=== PATIENT | male | born 1960 | race African-American/Black ===

== ENCOUNTER 2017-04-20 00:32 | Emergency (ER) | payer MEDICAID ==
[~2017-04-20] VITALS: Ht 177.8 cm; Wt 81.6 kg
[2017-04-20 00:32] VITALS: BP_SYST 211
--- NOTE | 2017-04-20 00:32 | NUR ---
Patient to ER bed 6 to gown for evaluation. Side rails up. Report given to KARMA MEZA.
--- NOTE | 2017-04-20 00:40 | NUR ---
Patient brought in BLS complaining of dark red blood in stool for 3 days and generalized weakness x 1 week. Denies any Nausea/vomiting or diarrhea. Pain of 9/10 to lower back and generalized abdominal pain. No other complaints/injuries per patient or as noted. Will continue to monitor.
--- NOTE | 2017-04-20 00:45 | NUR ---
ER at bedside examining patient.
--- NOTE | 2017-04-20 00:55 | NUR ---
urine collected and sent to lab.
--- NOTE | 2017-04-20 00:58 | NUR ---
Rectal exam performed by Dr. Garcia with KARMA Bhakta at bedside during procedure. Patient tolerated well.
[2017-04-20 01:05] LABS: BILIRUBIN,URINE NEGATIVE (NEGATIVE); CLARITY/URINE CLEAR (CLEAR); COLOR,URINE YELLOW (YELLOW); GLUCOSE,URINE NEGATIVE (NEGATIVE); KETONES,URINE 1+ (NEGATIVE); LEUKOCYTE ESTERASE ,URINE NEGATIVE (NEGATIVE); NITRITE, URINE NEGATIVE (NEGATIVE); PROTEIN URINE NEGATIVE (NEGATIVE); UROBILINOGEN,URINE 0.2 (0.2-1.0)
[2017-04-20 01:06] LABS: BLOOD, URINE TRACE (NEGATIVE)
[2017-04-20 01:09] LABS: BACTERIA,URINE FEW /HPF (None Seen); RBC,URINE 0-3 /HPF (0-3); WBC,URINE 0-3 /HPF (0-3)
[2017-04-20 01:32] LABS: EOSINOPHILS # (AUTO) 0.3 K/uL (0.0-0.4); EOSINOPHILS % (AUTO) 1.9 % (0.0-4.0); LYMPHOCYTES # (AUTO) 1.3 K/uL (1.0-5.5); MEAN CORPUSCULAR HEMOGLOBIN 23 pg (27-31); MEAN CORPUSCULAR VOLUME 75 fL (79.0-98.0)
[2017-04-20 01:34] LABS: BASOPHILS # (AUTO) 0.4 K/uL (0.0-0.2); BASOPHILS % (AUTO) 2.7 % (0.0-2.0); HEMATOCRIT 31.2 % (36-54); HEMOGLOBIN 9.6 g/dL (14.0-18.0); LYMPHOCYTES % (AUTO) 9.7 % (20.5-51.5); MEAN CORPUSCULAR HGB CONC 31 % (32-36); MONOCYTES # (AUTO) 0.7 K/uL (0.0-1.0); MONOCYTES % (AUTO) 5.1 % (1.7-9.3); NEUTROPHILS # (AUTO) 11.2 K/uL (1.8-7.7); NEUTROPHILS % (AUTO) 80.6 % (40.0-70.0); PLATELET COUNT (AUTO) 491 K/uL (130-430); RED BLOOD CELL COUNT(AUTO) 4.16 MIL/uL (4.2-6.2); RED CELL DISTRIBUTION WIDTH 17.8 % (9.0-15.0); WHITE BLOOD COUNT (AUTO) 13.9 K/uL (4.8-10.8)
[2017-04-20 01:39] LABS: CALCIUM 8.9 mg/dL (8.4-11.0); CREATININE 1.29 mg/dL (0.55-1.30)
[2017-04-20 01:45] LABS: ALBUMIN 3.7 g/dL (3.4-4.8); TOTAL BILIRUBIN 0.5 mg/dL (0.0-1.0)
[2017-04-20 02:15] LABS: BARBITURATE, URINE NEGATIVE (NEG <=200); BENZODIAZEPINE, URINE NEGATIVE (NEG <=150); CANNABINOID, URINE NEGATIVE (NEG <=50); COCAINE, URINE NEGATIVE (NEG <=150); METHAMPHETAMINES SCREEN,URINE POSITIVE (NEG <=500); OPIATE, URINE NEGATIVE (NEG <=100); PHENCYCLIDINE SCREEN,URINE NEGATIVE (NEG <=25); UR TRICYCLIC ANTIDEPRESSANTS NEGATIVE (NEG <=300); URINE AMPHETAMINE POSITIVE (NEG <=500); URINE METHADONE NEGATIVE (NEG <=200); URINE OXYCODONE SCREEN NEGATIVE (NEG <=100); URINE PROPOXYPHENE SCREEN NEGATIVE (NEG <=300)
[2017-04-20 02:16] VITALS: BP_SYST 142
--- NOTE | 2017-04-20 02:16 | NUR ---
Patient given written and verbal discharge instructions and verbalizes understanding. ER MD discussed with patient the results and treatment provided. Patient in stable condition. ID arm band removed. Rx of Metoprolol and toradol given. Patient educated on pain management and to follow up with PMD in 2-3 days. Pain Scale 0/10 Opportunity for questions provided and answered.
== END 2017-04-20 02:16 | disposition home or self-care (01) ==
LOC: SED 00:32
DX: K59.00 Constipation, unspecified (principal); I10 Essential (primary) hypertension; Z88.6 Allergy status to analgesic agent
CPT/HCPCS: 36415; 74021; 80053; 80307; 81000-TC; 82272; 83690-TC; 85025; 99285